=== PATIENT | male | born 1960 | race Caucasian/White ===

== ENCOUNTER → 2017-09-02 | Outpatient (CLI) | payer OTHER ==
--- NOTE | 2017-09-02 08:14 | CT ---
EXAMINATION TYPE: CT abdomen w con DATE OF EXAM: 09/02/2017 COMPARISON: NONE CT abdomen January 01, [address] September 06, 2015 HISTORY: cystic kidney disease CT DLP: 1074 mGycm, Automated Exposure Control for Dose Reduction was Utilized. CONTRAST: CT scan of the abdomen is performed with oral and with IV Contrast, patient injected with 100 mL of O mnipaque 300. FINDINGS: LUNG BASES: No significant abnormality is appreciated. LIVER/GB: There is redemonstration of several simple appearing cysts throughout the liver predominant ly in the left hepatic and caudate lobes. PANCREAS: No significant abnormality is seen. SPLEEN: No significant abnormality is seen. ADRENALS: No significant abnormality is seen. KIDNEYS: There is redemonstration of a 5.5 cm simple appearing cyst laterally mid pole level left kid kristina and 1.5 cm simple appearing cyst laterally mid to lower pole level right kidney that are unchange d in size and appearance from prior exam. There is symmetric cortical medullary uptake and excretion from both kidneys without evidence of new concerning solid or cystic renal mass or hydronephrosis [place] aterally. BOWEL: There is a small bowel feces sign in terminal ileum. There is no suspicious small or large bow el dilatation. Finding is consistent with delayed passage of ingested material 2 colonic level. There is small hiatal hernia. LYMPH NODES: No greater than 1cm abdominal lymph nodes are appreciated. OSSEOUS STRUCTURES: There is slight scoliotic curvature with straightening of lumbar spine on sagitta l images. There is mild to moderate multilevel spurring and disc space narrowing most prominent at L4 -L5 level. OTHER: No significant additional abnormality is seen. IMPRESSION: Redemonstration of stable simple appearing hepatic and renal cysts. No new suspicious lalo id or cystic masses are identified.
== END | disposition home or self-care (01) ==
LOC: RADCTMAIN 06:53
PROVIDERS: ATTEND Family Medicine
DX: N28.1 Cyst of kidney, acquired (principal); K76.89 Other specified diseases of liver
CPT/HCPCS: 74160; Q9967

== ENCOUNTER → 2018-03-12 | Outpatient (CLI) | payer OTHER ==
[2018-03-12 12:55] VITALS: BMI 27.0
== END | disposition home or self-care (01) ==
LOC: MNTWWP 09:11
PROVIDERS: ATTEND Physician Assistant Medical
DX: R73.01 Impaired fasting glucose (principal)
CPT/HCPCS: 97802

== ENCOUNTER → 2018-05-18 | Outpatient (CLI) | payer OTHER ==
--- NOTE | 2018-05-18 18:03 | XR ---
EXAMINATION TYPE: XR wrist complete RT DATE OF EXAM: 05/18/2018 COMPARISON: NONE HISTORY: Wrist pain TECHNIQUE: 3 views FINDINGS: I see no fracture nor dislocation. Carpal bones are intact. There are no erosions. IMPRESSION: Negative right wrist exam
== END | disposition home or self-care (01) ==
LOC: RADXRYALE 16:57
PROVIDERS: ATTEND Physician Assistant Medical
DX: M25.531 Pain in right wrist (principal)

== ENCOUNTER → 2018-12-21 | Outpatient (CLI) | payer OTHER ==
--- NOTE | 2018-12-21 09:31 | XR ---
EXAMINATION TYPE: XR shoulder complete BILAT DATE OF EXAM: 12/21/2018 COMPARISON: NONE HISTORY: Pain TECHNIQUE: Three views are submitted. FINDINGS: The osseous structures are intact. There is no acute fracture or dislocation. The AC joint is mildl y narrowed. IMPRESSION: 1. Mild AC joint arthropathy. Correlate with MRI if there is concern for rotator cuff disease.
== END | disposition home or self-care (01) ==
LOC: RADXRYALE 08:40
PROVIDERS: ATTEND Family Medicine
DX: M19.012 Primary osteoarthritis, left shoulder (principal); M19.011 Primary osteoarthritis, right shoulder

== ENCOUNTER → 2020-01-20 | Outpatient (CLI) | payer OTHER ==
--- NOTE | 2020-01-21 17:32 | CT ---
EXAMINATION TYPE: CT abdomen w con DATE OF EXAM: 01/20/2020 COMPARISON: 09/02/2017 INDICATION: f/u renal cysts DLP: 647 mGycm, Automated exposure control for dose reduction was used. CONTRAST: 100 mL of Isovue 300. Study performed with Oral Contrast TECHNIQUE: Axial images were obtained from above the diaphragm to the iliac wings in the axial plane at 5 mm thick sections. Reconstructed images are reviewed on the computer in the coronal plane. FINDINGS: Limited CT sections are obtained the lung bases. The lung bases are clear. CT ABDOMEN: Liver: Multiple hypodensities are within the liver compatible with stable appearing hepatic cysts. Th e largest is within the right lobe liver measuring 2.2 cm in 6 Hounsfield units. No suspicious interv al change suspected cysts are evident. Spleen: Normal Pancreas: Normal Adrenal glands: The adrenal glands are normal. Gallbladder: Decompressed somewhat limited evaluation Kidneys: No masses are evident. No hydronephrosis is present. Largest cyst on the left anterior mid kidney measures 5.9 cm and 7 Hounsfield units. Largest cyst on the right measures 1.9 cm and 8 Houns field units. These were present previously and appears essentially stable. Delayed images were obtai mati through the kidneys, which remain unremarkable. Aorta: Vascular calcification is within the aorta. Inferior vena cava: Normal. Loops of bowel visualized distended with oral contrast appear normal. Oral contrast somewhat limited there are loops of bowel lacking oral contrast are incompletely distended limiting their evaluation. IMPRESSIONS: 1. Stable bilateral renal cysts. 2. Stable appearing hepatic cysts
== END | disposition home or self-care (01) ==
LOC: RADCTMAIN 15:51
PROVIDERS: ATTEND Physician Assistant Medical
DX: Q61.02 Congenital multiple renal cysts (principal); Q44.6 Cystic disease of liver
CPT/HCPCS: 74160; Q9967

== ENCOUNTER → 2021-01-18 | Outpatient (CLI) | payer OTHER ==
--- NOTE | 2021-01-18 09:53 | XR ---
Lumbosacral spine HISTORY: Degenerative disc disease, low back pain 5 views of lumbosacral spine, correlation to CT from outside institution dated 09/06/2015 There is multilevel spondylosis. Loss of disc height is present at intervertebral levels. Lumbar vert ebral bodies show preserved height and alignment. Bone mineralization may be slightly reduced. Sclero sis is present in the posterior elements. No evident spondylolysis. There is a levoscoliosis centered at the mid lumbar spine. There is some sclerosis, questionable cystic change at the sacroiliac joint levels. IMPRESSION: Degenerative disc disease and facet arthropathy, spinal curvature. Correlate for sacroili itis, CT or MRI may be of benefit.
== END | disposition home or self-care (01) ==
LOC: RADXRYALE 09:03
PROVIDERS: ATTEND Family Medicine
DX: M51.36 Other intervertebral disc degeneration, lumbar region (principal); M47.816 Spondylosis without myelopathy or radiculopathy, lumbar region; M43.8X6 Other specified deforming dorsopathies, lumbar region
CPT/HCPCS: 72110

== ENCOUNTER → 2021-02-21 | Outpatient (CLI) | payer OTHER ==
--- NOTE | 2021-02-21 10:29 | US ---
EXAMINATION TYPE: US abdomen complete DATE OF EXAM: 02/21/2021 COMPARISON: None CLINICAL HISTORY: Q44.6 Cystic disease of liver. Hx cysts on liver and kidney. EXAM MEASUREMENTS: Liver Length: 15.0 cm Gallbladder Wall: 0.2 cm CBD: 0.4 cm Spleen: 10.6 cm Right Kidney: 13.0 x 5.4 x 5.4 cm Left Kidney: 13.6 x 5.2 x 5.6 cm Pancreas: Tail obscured by bowel gas Liver: Cystic lesions present, these appear simple. Largest on right = 2.6 x 2.6 x 1.8 cm. Largest on left = 1.9 x 1.5 x 1.3 cm Gallbladder: wnl Evidence for sonographic Luna's sign: neg CBD: wnl Spleen: wnl Right Kidney: Cystic lesion lateral mid = 2.1 x 1.8 x 1.7 cm Left Kidney: Cystic lesion seen medial = 6.9 x 6.8 x 5.7 cm Upper IVC: wnl Abd Aorta: Limited visualization of proximal portion. No AAA visualized. IMPRESSION: 1. Hepatic cysts. 2. Simple appearing bilateral renal cysts.
== END | disposition home or self-care (01) ==
LOC: RADUSWWP 07:23
PROVIDERS: ATTEND Family Medicine
DX: K76.89 Other specified diseases of liver (principal); N28.1 Cyst of kidney, acquired
CPT/HCPCS: 76700

== ENCOUNTER → 2021-06-05 | Outpatient (CLI) | payer OTHER ==
[2021-06-05 07:58] VITALS: BP 147/77; PULSE 72; RESP 18; TEMP 98.3
--- NOTE | 2021-06-05 08:21 | P.PAINCN ---
History of Present Illness - Reason for Consult Consult date: 06/05/21 - History of Present Illness CC 61 years old male with a chronic history of severe low back pain started more than 7 months ago, he denies any initiating event, he reported that the pain mostly in the low back area which is increased with any activity, and the pain interfered with his ability to work and function, and his ability to do activity of daily livings, he denies any numbness or tingling sensation he denies any weakness in the lower extremity, denies any change in the bowel movement or urination, he tried physical therapy, any improvement in his pain he tried heat and massage without any change in his pain level, and he tried NSAID(MOTRIN ), he continued to have pain Past Medical History Additional Past Medical History / Comment(s): degenerative and bulging disks, History of Any Multi-Drug Resistant Organisms: None Reported Past Surgical History: Hernia Repair, Orthopedic Surgery Additional Past Surgical History / Comment(s): rt knee arthroscopy, cyst removed from rt shoulder Past Anesthesia/Blood Transfusion Reactions: Family History of Problems w/ Anesthesia Additional Past Anesthesia/Blood Transfusion Reaction / Comm: "dad gets violent if he gets too much" Smoking Status: Former smoker - Past Family History Brother(s) Family Medical History: Cancer Medications and Allergies Home Medications Medication Instructions Recorded Confirmed Type Ibuprofen 800 mg PO TID PRN 06/04/21 06/05/21 History Allergies Allergy/AdvReac Type Severity Reaction Status Date / Time No Known Allergies Allergy Verified 06/04/21 14:19 Physical Exam Vitals: Vital Signs Temp Pulse Resp BP Pulse Ox 06/05/21 07:55 98.3 F 72 18 147/77 95 Physical Examinations : -Constitutiona : Cooperative , not in acute distress . -HEENT : nech : supple , no Lymphadenopathy , normal thyroid size . : eyes : no ptosis , no icterus, no photophobia . - neurologic : Cranial nerve II to XII intact , no focal neurological deffecit . -psychatric : alert , oriented X 3 , appropriate affect , intact judgment and insight . -Lymphatic : no Lymphadenopathy . - musculoskeltal : Lumber spine moter stegnth lower extremities ,thigh and legs 5/5 Right side , 5/5 Left side deep tendon reflexes : normal Knee Jerk , normal ankle Jerk lumber facet Loading Test =positive Right , positive Left Range of motion of the lumbar spine Flexion 60 degrees, extension 10 degrees strait leg raising test = negative bi laterally Fabere test= negative bilaterally . mild tenderness over the Sacroiliac joint on the Right , and Left sides Results Comments: MRI of the lumbar spine= multilevel lumbar bulging disc disease multilevel lumbar facet hypertrophy and foraminal stenosis and central canal stenosis at L4 5 Assessment and Plan Plan: Assessment and plan=1-Lumbar spondylosis with lumbar facet arthropathy. 2-lumbar degenerative disc disease. 3-lumbar foraminal stenosis at L4 5. Patient will be good candidate to have diagnostic medial branch block lumbar area at L3, L4, L5, bilaterally and possible RFA Time with Patient: Greater than 30 PQRS Measure Charge Sheet Measure #130: Documentation of Current Meds in Medical Chart: Patient's medications documented in chart Measure #226: Tobacco Use: Screen & Cessation Intervention: Pt not a tobacco user Measure #111: Pneumonia Vaccination: Pneumococcal vaccine NOT administered or previously given Measure #47: Advance Care Plan: Advance care planning discussed & documented, pt chose/unable to give Measure #412: Opioid Treatment Agreement: No documentation of signed opioid treatment agreement Measure #408: Opioid Therapy Follow-up Evaluation: Patient had NO f/u eval minimum every 3 months during opioid therapy Measure #317: Preventitive Care & Scrn High Bld Press & F/U: Pre-hypertensive or hypertensive BP documented, pt will f/u with PCP Measure #128: Body Mass Index (BMI) Screening & Follow-up: BMI documented within normal parameters Measure #131: Pain Assessment & Follow-up: Follow-up scheduled Measure #431: Unhealthy Alcohol Use Preventative Care & Scrn: Patient not anil ntified as an unhealthy alcohol user PQRS Narrative: Blood Pressure 147/77 Pain Intensity [Bilateral 1 Shoulder] Pain Intensity [Lower Back] 1 Scale Used Numeric (1 - 10) Hx Alcohol Use (MH) No Home Medications: Ambulatory Orders Ibuprofen 800 mg PO TID PRN 06/04/21
== END ==
LOC: PNWHC3 07:42
PROVIDERS: ATTEND Specialist
DX: M47.816 Spondylosis without myelopathy or radiculopathy, lumbar region (principal); M51.36 Other intervertebral disc degeneration, lumbar region; M48.061 Spinal stenosis, lumbar region without neurogenic claudication; Z87.891 Personal history of nicotine dependence
CPT/HCPCS: 99211

== ENCOUNTER 2021-06-28 07:08 | Day surgery (SDC) | payer OTHER ==
[2021-06-26 13:25] VITALS: BMI 25.1
[~2021-06-28 07:08] MED LIST: LACTATED RINGERS 1,000 ML IV SCH
[2021-06-28 07:29] VITALS: TEMP 96.9
[2021-06-28] MEDS ORDERED: fentaNYL (PF) 50 MCG/ML 2 ML AMP ONE (07:55)
[2021-06-28] MEDS ORDERED: MIDAZOLAM 2 MG/2 ML VIAL ONE (07:55)
[2021-06-28] MEDS ORDERED: methylPREDNISolone ACETATE 40 MG/ML 1 ML VIAL ONE (07:56)
[2021-06-28] MEDS ORDERED: ROPIVACAINE 5MG/ML 20ML VIAL ONE (07:56)
--- NOTE | 2021-06-28 08:18 | P.PCN ---
Date of Procedure: 06/28/21 Procedure(s) Performed: PREOPERATIVE DIAGNOSIS : 1- Lumbar spondylosis with Facet Arthropathy without myelopathy . 2- Lumber degenerative disc disease POSTOPERATIVE DIAGNOSIS: 1- Lumbar spondylosis with Facet Arthropathy without myelopathy . 2- Lumber degenerative disc disease PROCEDURE: Diagnostic bilateral L3 , L4 , and L5 medial branch block under fluoroscopy guidance(fluoroscopy images available in the radiology Department ) ( To target the facet joint between L4-5 , and L5-S1 ) ANESTHESIA:, monitered anesthesia care as per anesthesia department. EBL: Minimal COMPLICATION: None PROCEDURE INDICATION: Chronic low back pain secondary to Facet arthropathy unresponsive to conservative treatment. PROCEDURE DESCRIPTION: the patient was seen and identified in the preop holding area , risks and benefits and possible complications of the procedure and alternative were discussed with the patient, and the patient agreed to proceed with the procedure and signed the consent and vital signs monitored during the procedure and fluoroscopy was used to maximize the benefit and accuracy of the needle placement, and sedation was given to decrease patient anxiety, patient was taken to the procedure room and placed in prone position vital signs monitored in the back prepped with chlorhexidine X3 then under strict sterile technique using a right oblique fluoroscopy ,the junction of the transverse process and the superior articulating process of the right L3 , L4 , and L5 vertebra which corresponding to the fluoroscopy image of the eye of the Sukhjinder dog on the block side for the medial branches and subsequently , after local infiltration of skin and subcu tissuies with Ropivacaine 0.5 % , one mL at each level ,then 22-gauge Quincke-type needles , 3 needle was used , each one of them placed at the junction of the base of the transverse process and the superior articular process at the appropriate level, and the needle was advanced until the periosteum contacted, needle placement confirmed with AP oblique and lateral view and after appropriate needle placement confirmed, and after negative aspiration for heme and CSF and there was no paresthesia 1-1/2 mL of Ropivacaine 0.5% mixed with 20 mg Depo-Medrol , then half mL injected at each level after negative aspiration the needle subsequently removed and the same procedure repeated for the left side at left side at L3 , L4 and L5 levels. At the end of the procedure and the needles removed and a bandage applied after the skin was cleaned the cleaning solution patient taken to recovery room in stable condition and monitors in the recovery room for 20-30 minutes and discharged home in stable condition after discharge criteria met and patient will follow up with the pain clinic in 2-4 weeks
[2021-06-28] MEDS ORDERED: IV FLUID CONTINUATION 1,000 ML IV ONE ×2 (08:20)
[2021-06-28 08:25] VITALS: RESP 18
[2021-06-28 08:38] VITALS: BP 132/79; PULSE 62
--- NOTE | 2021-06-28 09:22 | FL ---
EXAMINATION TYPE: FL guided pain mgmt statistic DATE OF EXAM: 06/28/2021 HISTORY: Fluoroscopy time 9 seconds of fluoroscopy provided. IMPRESSION: 1. Fluoroscopy time.
== END 2021-06-28 08:53 | disposition home or self-care (01) ==
LOC: ORPAIN 07:08
PROVIDERS: ATTEND Specialist
DX: G89.29 Other chronic pain (principal); M47.816 Spondylosis without myelopathy or radiculopathy, lumbar region; M51.36 Other intervertebral disc degeneration, lumbar region; Z79.1 Long term (current) use of non-steroidal anti-inflammatories (NSAID)
CPT/HCPCS: 64493; 64494; J2250; J1030; J3010; J2795

== ENCOUNTER → 2021-07-22 | Outpatient (CLI) | payer OTHER ==
[2021-07-22 08:10] VITALS: BP 152/84; PULSE 73; RESP 18; TEMP 98.1
--- NOTE | 2021-07-22 08:18 | P.PAINPG ---
Subjective Progress Note Date: 07/22/21 - History of Present Illness CC 61 years old male with a chronic history of severe low back pain started more than 7 months ago, he denies any initiating event, he reported that the pain mostly in the low back area which is increased with any activity, and the pain interfered with his ability to work and function, and his ability to do activity of daily livings, he denies any numbness or tingling sensation he denies any weakness in the lower extremity, denies any change in the bowel movement or urination, he tried physical therapy, any improvement in his pain he tried heat and massage without any change in his pain level, and he tried NSAID(MOTRIN ), he continued to have pain. We recently performed bilateral medial branch block at L4-L5 and L5-S1. Patient's that he had 90% relief from the procedure for several days. It allowed him to do some more home exercises and is looking forward to doing some type of physical therapy when his pain is controlled. He also plans on doing customer care coordinator. He would like to repeat the procedure and proceeded to ablation were it appropriate. Physical Examinations : -Constitutiona : Cooperative , not in acute distress . -HEENT : nech : supple , no Lymphadenopathy , normal thyroid size . : eyes : no ptosis , no icterus, no photophobia . - neurologic : Cranial nerve II to XII intact , no focal neurological deffecit . -psychatric : alert , oriented X 3 , appropriate affect , intact judgment and insight . -Lymphatic : no Lymphadenopathy . - musculoskeltal : Lumber spine moter stegnth lower extremities ,thigh and legs 5/5 Right side , 5/5 Left side deep tendon reflexes : normal Knee Jerk , normal ankle Jerk lumber facet Loading Test =positive Right , positive Left Range of motion of the lumbar spine Flexion 60 degrees, extension 10 degrees strait leg raising test = negative bilaterally Fabere test= negative bilaterally . mild tenderness over the Sacroiliac joint on the Right , and Left sides Results Comments: MRI of the lumbar spine= multilevel lumbar bulging disc disease multilevel lumbar facet hypertrophy and foraminal stenosis and central canal stenosis at L4 5 Assessment and Plan Plan: Assessment and plan=1-Lumbar spondylosis with lumbar facet arthropathy. 2-lumbar degenerative disc disease. 3-lumbar foraminal stenosis at L4 5. Patient will be good candidate to have his second medial branch block at bilateral L4-5 and L5-S1 I have spent 24 minutes on patient care today. The time was used to review the medical records including relevant urine studies and prescription history, review of the available imaging, evaluation and examination of the patient, coordination of care with the medical staff and if applicable referring physicians, as well as creation of the medical record. PQRS Measure Charge Sheet Measure #130: Documentation of Current Meds in Medical Chart: Patient's medications documented in chart Measure #226: Tobacco Use: Screen & Cessation Intervention: Pt not a tobacco user Measure #111: Pneumonia Vaccination: Pneumococcal vaccine NOT administered or previously given Measure #47: Advance Care Plan: Advance care planning discussed & documented, pt chose/unable to give Measure #412: Opioid Treatment Agreement: No documentation of signed opioid treatment agreement Measure #408: Opioid Therapy Follow-up Evaluation: Patient had NO f/u eval minimum every 3 months during opioid therapy Measure #317: Preventitive Care & Scrn High Bld Press & F/U: Pre-hypertensive or hypertensive BP documented, pt will f/u with PCP Measure #128: Body Mass Index (BMI) Screening & Follow-up: BMI documented within normal parameters Measure #131: Pain Assessment & Follow-up: Follow-up scheduled Measure #431: Unhealthy Alcohol Use Preventative Care & Scrn: Patient not identified as an unhealthy alcohol user PQRS Narrative: PQRS Measure Charge Sheet PQRS Narrative: Scale Used Numeric (1 - 10) Hx Alcohol Use (MH) No Home Medications: Ambulatory Orders Ibuprofen 800 mg PO TID PRN 06/04/21 Controlled Substance Measures - Controlled Substance Measures Is patient prescribed a controlled substance at discharge?: No
== END ==
LOC: PNWHC3 07:55
PROVIDERS: ATTEND Anesthesiology
DX: M47.816 Spondylosis without myelopathy or radiculopathy, lumbar region (principal); M51.36 Other intervertebral disc degeneration, lumbar region; M48.061 Spinal stenosis, lumbar region without neurogenic claudication
CPT/HCPCS: 99211

== ENCOUNTER 2021-08-02 06:00 | Day surgery (SDC) | payer OTHER ==
[2021-07-31 15:40] VITALS: BMI 26.4
[2021-08-02 06:22] VITALS: RESP 16; TEMP 97.3
[2021-08-02] MEDS ORDERED: LACTATED RINGERS 1,000 ML IV ONE ×2 (06:23)
[2021-08-02] MEDS ORDERED: LIDOCAINE 1% (10MG/ML) FOR IV START INTRADERMA ONE (06:23)
[2021-08-02] MEDS ORDERED: fentaNYL (PF) 50 MCG/ML 2 ML AMP ONE (07:04)
[2021-08-02] MEDS ORDERED: MIDAZOLAM 2 MG/2 ML VIAL ONE (07:04)
[2021-08-02] MEDS ORDERED: methylPREDNISolone ACETATE 40 MG/ML 1 ML VIAL ONE (07:04)
[2021-08-02] MEDS ORDERED: ROPIVACAINE 5MG/ML 20ML VIAL ONE (07:04)
--- NOTE | 2021-08-02 07:23 | P.PCN ---
Date of Procedure: 08/02/21 Procedure(s) Performed: PREOPERATIVE DIAGNOSIS : 1- Lumbar spondylosis with Facet Arthropathy without myelopathy . 2- Lumber degenerative disc disease POSTOPERATIVE DIAGNOSIS: 1- Lumbar spondylosis with Facet Arthropathy without myelopathy . 2- Lumber degenerative disc disease PROCEDURE: Diagnostic bilateral L3 , L4 , and L5 medial branch block under fluoroscopy guidance(fluoroscopy images available in the radiology Department ) ( To target the facet joint between L4-5 , and L5-S1 ) #2nd ANESTHESIA:, monitered anesthesia care as per anesthesia department. EBL: Minimal COMPLICATION: None PROCEDURE INDICATION: Chronic low back pain secondary to Facet arthropathy unresponsive to conservative treatment. PROCEDURE DESCRIPTION: the patient was seen and identified in the preop holding area , risks and benefits and possible complications of the procedure and alternative were discussed with the patient, and the patient agreed to proceed with the procedure and signed the consent and vital signs monitored dur ing the procedure and fluoroscopy was used to maximize the benefit and accuracy of the needle placement, and sedation was given to decrease patient anxiety, patient was taken to the procedure room and placed in prone position vital signs monitored in the back prepped with chlorhexidine X3 then under strict sterile technique using a right oblique fluoroscopy ,the junction of the transverse process and the superior articulating process of the right L3 , L4 , and L5 vertebra which corresponding to the fluoroscopy image of the eye of the Sukhjinder dog on the block side for the medial branches and subsequently , after local infiltration of skin and subcu tissuies with Ropivacaine 0.5 % , one mL at each level ,then 22-gauge Quincke-type needles , 3 needle was used , each one of them placed at the junction of the base of the transverse process and the superior articular process at the appropriate level, and the needle was advanced until the periosteum contacted, needle placement confirmed with AP oblique and lateral view and after appropriate needle placement confirmed, and after negative aspiration for heme and CSF and there was no paresthesia 1-1/2 mL of Ropivacaine 0.5% mixed with 20 mg Depo-Medrol , then half mL injected at each level after negative aspiration the needle subsequently removed and the same procedure repeated for the left side at left side at L3 , L4 and L5 levels. At the end of the procedure and the needles removed and a bandage applied after the skin was cleaned the cleaning solution patient taken to recovery room in stable condition and monitors in the recovery room for 20-30 minutes and discharged home in stable condition after discharge criteria met and patient will follow up with the pain clinic in 2-4 weeks. NOTE =patients had 6 Lumbar Vertebra ,and L6 fused with the sacral Ala
[2021-08-02] MEDS ORDERED: IV FLUID CONTINUATION 1,000 ML IV ONE (07:25)
[2021-08-02 07:44] VITALS: BP 121/74; PULSE 57
--- NOTE | 2021-08-02 08:19 | FL ---
EXAMINATION TYPE: FL guided pain mgmt statistic DATE OF EXAM: 08/02/2021 HISTORY: Fluoroscopy time 13 seconds of fluoroscopy provided. IMPRESSION: 1. Fluoroscopy time.
== END 2021-08-02 08:00 | disposition home or self-care (01) ==
LOC: ORPAIN 06:00
PROVIDERS: ATTEND Specialist
DX: M47.816 Spondylosis without myelopathy or radiculopathy, lumbar region (principal); G89.29 Other chronic pain
CPT/HCPCS: 64493; 64494; J2250; J1030; J3010; J2795

== ENCOUNTER → 2021-09-02 | Outpatient (CLI) | payer OTHER ==
[2021-09-02 08:05] VITALS: BP 154/95; PULSE 81; RESP 18
--- NOTE | 2021-09-02 08:16 | P.PN ---
Subjective Progress Note Date: 09/02/21 This is 61 years old male with a chronic history of severe low back pain ,start ed more than 7 months ago, he is Diagnosed with lumbar spondylosis with lumbar facet arthropathy and lumbar spinal stenosis,, denies any change in the bowel movement or urination, he tried physical therapy, any improvement in his pain he tried heat and massage without any change in his pain level, and he tried NSAID(MOTRIN ), he continued to have pain. We recently performed bilateral medial branch block at L4-L5 and L5-S1. x2 , reported that he got 90% relief of his low back pain after the first block and the pain relief lasted for a few days and he reported that his activity improved after the block, and then the diagnostic block was repeated and he got 100% relief after the second diagnostic block , he reported that the pain relief lasted for 1 day after the block Physical Examinations : -Constitutiona : Cooperative , not in acute distress . -HEENT : nech : supple , no Lymphadenopathy , normal thyroid size . : eyes : no ptosis , no icterus, no photophobia . - neurologic : Cranial nerve II to XII intact , no focal neurological deffecit . -psychatric : alert , oriented X 3 , appropriate affect , intact judgment and insight . -Lymphatic : no Lymphadenopathy . - musculoskeltal : Lumber spine moter stegnth lower extremities ,thigh and legs 5/5 Right side , 5/5 Left side deep tendon reflexes : normal Knee Jerk , normal ankle Jerk lumber facet Loading Test =positive Right , positive Left Range of motion of the lumbar spine Flexion 60 degrees, extension 10 degrees strait leg raising test = negative bilaterally Fabere test= negative bilaterally . mild tenderness over the Sacroiliac joint on the Right , and Left sides : MRI of the lumbar spine= multilevel lumbar bulging disc disease multilevel lumbar facet hypertrophy and foraminal stenosis and central canal stenosis at L4 5 Assessment and plan=1-Lumbar spondylosis with lumbar facet arthropathy. 2-lumbar degenerative disc disease. 3-lumbar foraminal stenosis at L4 5. Patient will be good candidate to have RFA medial branch block at bilateral L4-5 and L5-S1 PQRS Measure Charge Sheet Measure #130: Documentation of Current Meds in Medical Chart: Patient's medications documented in chart Measure #226: Tobacco Use: Screen & Cessation Intervention: Pt not a tobacco user Measure #111: Pneumonia Vaccination: Pneumococcal vaccine NOT administered or previously given Measure #47: Advance Care Plan: Advance care planning discussed & documented, pt chose/unable to give Measure #412: Opioid Treatment Agreement: No documentation of signed opioid treatment agreement Measure #408: Opioid Therapy Follow-up Evaluation: Patient had NO f/u eval minimum every 3 months during opioid therapy Measure #317: Preventitive Care & Scrn High Bld Press & F/U: Pre-hypertensive or hypertensive BP documented, pt will f/u with PCP Measure #128: Body Mass Index (BMI) Screening & Follow-up: BMI documented within normal parameters Measure #131: Pain Assessment & Follow-up: Follow-up scheduled Measure #431: Unhealthy Alcohol Use Preventative Care & Scrn: Patient not identif Objective - Vital Signs Vital signs: Vital Signs Temp Pulse 81 09/02/21 07:58 Resp 18 09/02/21 07:58 BP 154/95 09/02/21 07:58 Pulse Ox 95 09/02/21 07:58
== END ==
LOC: PNWHC3 07:48
PROVIDERS: ATTEND Specialist
DX: M47.816 Spondylosis without myelopathy or radiculopathy, lumbar region (principal); M51.36 Other intervertebral disc degeneration, lumbar region; M48.061 Spinal stenosis, lumbar region without neurogenic claudication
CPT/HCPCS: 99211

== ENCOUNTER 2021-10-04 06:10 | Day surgery (SDC) | payer OTHER ==
[2021-10-02 16:26] VITALS: BMI 25.7
[2021-10-04 06:36] VITALS: RESP 16; TEMP 97.3
[2021-10-04] MEDS ORDERED: ROPIVACAINE 5MG/ML 20ML VIAL ONE (07:05)
[2021-10-04] MEDS ORDERED: MIDAZOLAM 2 MG/2 ML VIAL ONE (07:05)
[2021-10-04] MEDS ORDERED: methylPREDNISolone ACETATE 40 MG/ML 1 ML VIAL ONE (07:05)
[2021-10-04] MEDS ORDERED: fentaNYL (PF) 50 MCG/ML 2 ML AMP ONE (07:05)
--- NOTE | 2021-10-04 07:37 | P.PCN ---
Date of Procedure: 10/04/21 Procedure(s) Performed: PREOPERATIVE DIAGNOSIS: 1-Lumbar Spondylosis with Facet Arthropathy without myelopathy. 2- Lumber degenerative disc disease. POSTOPERATIVE DIAGNOSIS: 1- Lumbar Spondylosis with Facet Arthropathy without myelopathy. 2- Lumber degenerative disc disease. PROCEDURES : Bilateral Radiofrequency thermocoagulation, L3 , L4 , and L5 medial branch, with fluoroscopic guidance (fluoroscopy images available in the radiology department) ( to denervate the facet joint at L4-5 ,and L5-S1 levels ). ANESTHESIA: Monitored anesthesia care as per anesthesia department . EBL: Minimal PROCEDURE INDICATION: The patient with low back pain secondary to lumbar facet arthropathy who had more than 80% relief of her pain with previous diagnostic lumbar medial branch block with bupivacaine. PROCEDURE DESCRIPTION / TECHNIQUE: The patient was seen and identified in the preoperative area. Risks, benefits, complications, including but not limited to risk of infection ,bleeding , allergic reactions to the medications and no complete pain releife , and alternatives were discussed with the patient, the patient agreed to proceed with the procedure and signed the consent. IV was started. Vital signs remained stable throughout the procedure. Patient was taken to the OR and time out was completed. The patient was placed in the prone position on the procedure table. The lumber area was prepped and draped in the usual sterile fashion. . Vital signs were closely monitored during the procedure .IV sedation was used during the procedure to decrease patients anxiety. Using AP and then oblique fluoroscopy, the ``eye of the Sukhjinder dog corresponding to the connection between the superior and transverse articular processes of right L3, L4, and L5 were identified, marked, and localized with 1% lidocaine. Subsequently, a 18 [id number] radiofrequency cannula with a 10- mm active tip was advanced guided by fluoroscopy to each of the``eyes of the Sukhjinedr dog at right L3, L4, and L5. Each site then underwent sensory testing at 50 Hz and 0 to 1 volt and motor testing at 2.5 Hz and 0 to 3 volt with local stimulation, but no radicular symptoms down the legs. Thereafter each sites underwent radiofrequency thermocoagulation at 80 degrees celsius for 90 seconds after injecting 0.5 ml of PF Ropivacaine 1ml, then after the thermocoagulation done , 1 ml of the block solution containing Depo-Medrol 20 mg and 3 ml of Ropivacaine 0.5% was injected at the right L3 , L4 , and L5 , levels after negative aspiration of CSF and blood and with no paresthesias. Cannulas were retracted while injecting lidocaine 1% until the needle is out. The same procedure was repeated at the level of Left L3, L4, and L5 levels. At the end of the procedure, the skin was cleansed and bandages were applied. COMPLICATIONS: No acute complications. DISPOSITION / PLANS: The patient was placed in a supine position and transferred to the recovery area in a stable condition for observation and was discharged from the recovery room after meeting discharge criteria. Home discharge instructions given to the patient by the staff. The patient was reexamined prior to discharge. The patient will schedule a follow up in the clinic in 2-4 weeks.
[2021-10-04 07:53] VITALS: BP 157/84; PULSE 64
[2021-10-04] MEDS ORDERED: IV FLUID CONTINUATION 1,000 ML IV ONE (07:53)
--- NOTE | 2021-10-04 08:51 | FL ---
EXAMINATION TYPE: FL guided pain mgmt statistic DATE OF EXAM: 10/04/2021 HISTORY: Fluoroscopy time 46 seconds of fluoroscopy provided. IMPRESSION: 1. Fluoroscopy time.
== END 2021-10-04 08:26 | disposition home or self-care (01) ==
LOC: ORPAIN 06:10
PROVIDERS: ATTEND Specialist
DX: M47.816 Spondylosis without myelopathy or radiculopathy, lumbar region (principal); M51.36 Other intervertebral disc degeneration, lumbar region
CPT/HCPCS: 64635; 64636; J2250; J1030; J3010; J2795

== ENCOUNTER → 2021-10-21 | Outpatient (CLI) | payer OTHER ==
[2021-10-21 07:58] VITALS: BP 149/82; PULSE 94; RESP 18; TEMP 98.3
--- NOTE | 2021-10-21 08:03 | P.PN ---
Progress Note - Text This is 61 years old male with a chronic history of severe low back pain , he is Diagnosed with lumbar spondylosis with lumbar facet arthropathy, and lumbar spinal stenosis,,. We recently performed RFA bilateral medial branch , reported that he got 90% relief of his pain Physical Examinations : -Constitutiona : Cooperative , not in acute distress . -HEENT : nech : supple , no Lymphadenopathy , normal thyroid size . : eyes : no ptosis , no icterus, no photophobia . - neurologic : Cranial nerve II to XII intact , no focal neurological deffecit . -psychatric : alert , oriented X 3 , appropriate affect , intact judgment and insight . -Lymphatic : no Lymphadenopathy . - musculoskeltal : Normal motor strength and normal sensation : MRI of the lumbar spine= multilevel lumbar bulging disc disease multilevel lumbar facet hypertrophy and foraminal stenosis and central canal stenosis at L4 5 Assessment and plan= 1-Lumbar spondylosis with lumbar facet arthropathy. 2-lumbar degenerative disc disease. 3-lumbar foraminal stenosis at L4 5. Patient excellent pain relief after RFA medial branch block at bilateral L4-5 and L5-S1 Patient will follow up when necessary PQRS Measure Charge Sheet Measure #130: Documentation of Current Meds in Medical Chart: Patient's medications documented in chart Measure #226: Tobacco Use: Screen & Cessation Intervention: Pt not a tobacco user Measure #111: Pneumonia Vaccination: Pneumococcal vaccine NOT administered or previously given Measure #47: Advance Care Plan: Advance care planning discussed & documented, pt chose/unable to give Measure #412: Opioid Treatment Agreement: No documentation of signed opioid treatment agreement Measure #408: Opioid Therapy Follow-up Evaluation: Patient had NO f/u eval minimum every 3 months during opioid therapy Measure #317: Preventitive Care & Scrn High Bld Press & F/U: Pre-hypertensive or hypertensive BP documented, pt will f/u with PCP Measure #128: Body Mass Index (BMI) Screening & Follow-up: BMI documented within normal parameters Measure #131: Pain Assessment & Follow-up: Follow-up scheduled Measure #431: Unhealthy Alcohol Use Preventative Care & Scrn: Patient not identif
== END ==
LOC: PNWHC3 07:34
PROVIDERS: ATTEND Specialist
DX: M47.816 Spondylosis without myelopathy or radiculopathy, lumbar region (principal); M51.36 Other intervertebral disc degeneration, lumbar region; M48.061 Spinal stenosis, lumbar region without neurogenic claudication
CPT/HCPCS: 99212

== ENCOUNTER 2021-11-29 06:57 | Day surgery (SDC) | payer OTHER ==
[2021-11-26 10:50] VITALS: BMI 25.5
[2021-11-29 07:15] VITALS: TEMP 96.4
[2021-11-29] MEDS ORDERED: PROPOFOL 10 MG/ML 20 ML VIAL IV ONE (07:52)
[2021-11-29] MEDS ORDERED: LIDOCAINE 1% INJ 10MG/ML (20 ML MDV) ONE (07:52)
--- NOTE | 2021-11-29 08:04 | P.PCN ---
Date of Procedure: 11/29/21 Procedure(s) Performed: BRIEF HISTORY: Patient is a 61-year-old pleasant white male scheduled for an elective colonoscopy as a part of screening for colorectal neoplasia. His last colonoscopy was 11 years ago. PROCEDURE PERFORMED: Colonoscopy. PREOPERATIVE DIAGNOSIS: Screening for colon cancer. IV sedation per Anesthesia. PROCEDURE: After informed consent was obtained, the patient, was brought into the endoscopy unit. IV sedation was administered by Anesthesia under continuous monitoring. Digital rectal examination was normal. Initially the Olympus CF-160 flexible video colonoscope was then inserted in the rectum, gradually advanced into the cecum without any difficulty. Careful examination was performed as the scope was gradually being withdrawn. Ileocecal valve and the appendiceal orifice were visualized and appeared normal. Prep was excellent. Mucosa of the cecum, ascending colon, transverse colon, descending colon, sigmoid colon, and rectum appeared normal. Retroflexion was performed in the rectum and no lesions were seen. The patient tolerated the procedure well. IMPRESSION: Normal-appearing colon from rectum to cecum with no evidence of colorectal neoplasia RECOMMENDATIONS: Findings of this examination were discussed with the patient as well as his family. He was advised to have a repeat screening colonoscopy in 10 years..
[2021-11-29 08:10] VITALS: RESP 16
[2021-11-29 08:23] VITALS: BP 132/81; PULSE 61
== END 2021-11-29 08:39 | disposition home or self-care (01) ==
LOC: ORWHC2ENDO 06:57
PROVIDERS: ATTEND Internal Medicine Gastroenterology
DX: Z12.11 Encounter for screening for malignant neoplasm of colon (principal)
CPT/HCPCS: J2001; J2704; G0121

== ENCOUNTER → 2023-03-30 | Outpatient (CLI) | payer MEDICARE, OTHER | END | disposition home or self-care (01) | LOC: RADXRYALE 08:54 | PROVIDERS: ATTEND Family Medicine | DX: Z53.9 Procedure and treatment not carried out, unspecified reason (principal) ==

== ENCOUNTER → 2023-03-31 | Outpatient (CLI) | payer MEDICARE, OTHER ==
--- NOTE | 2023-04-01 08:47 | XR ---
EXAMINATION TYPE: XR shoulder 3 views DATE OF EXAM: 04/01/2023 COMPARISON: 12/21/2018 HISTORY: Pain TECHNIQUE: 3 view left shoulder series submitted FINDINGS: There is AC joint arthropathy. Subsegmental changes left lung base. No acute fracture or dislocation. IMPRESSION: 1. Mild to moderate AC joint arthropathy correlate clinically. MTDD
--- NOTE | 2023-04-01 09:42 | XR ---
EXAMINATION TYPE: XR abdomen 1V DATE OF EXAM: 04/01/2023 COMPARISON: NONE HISTORY: Pain TECHNIQUE: 5 view cervical spine series FINDINGS: Odontoid view limited by rotation. Grossly appears intact on the lateral view. Moderate to severe degenerative disc disease C3-4, C4-5, and C5-C6 with retrolisthesis and posterior spondylosis. There is multilevel facet arthropathy. There is bilateral multilevel foraminal protrusion. IMPRESSION: 1. Severe multilevel degenerative disc disease with retrolisthesis set arthropathy most marked at level C3-C6. Multilevel bilateral foraminal encroachment consider follow-up MRI. MTDD
== END | disposition home or self-care (01) ==
LOC: RADXRYALE 15:49
PROVIDERS: ATTEND Family Medicine
DX: M19.012 Primary osteoarthritis, left shoulder (principal); M50.31 Other cervical disc degeneration, high cervical region; M43.12 Spondylolisthesis, cervical region; M99.71 Connective tissue and disc stenosis of intervertebral foramina of cervical region
CPT/HCPCS: 72050